=== PATIENT | female | born 1985 | race Caucasian/White ===

== ENCOUNTER 2016-08-01 20:27 | Emergency (ER) | payer OTHER ==
[2016-08-01 21:01] VITALS: RESP 20; TEMP 97.4
[2016-08-01 21:20] LABS: BASOPHILS % (AUTO) 1 % (0-3); EOSINOPHILS % (AUTO) 1 % (0-9); HEMATOCRIT 43 % (35-47); MEAN CORPUSCULAR HGB CONC 36.7 gm/dl (32.0-36.0); MEAN CORPUSCULAR VOLUME 85 fL (81-99); MONOCYTES % (AUTO) 4.5 % (0-12)
[2016-08-01 21:45] LABS: CALCIUM 9.4 mg/dl (8.5-10.1); GLOM FILT RATE 95 mL/min (>60); POTASSIUM 3.2 mMol/L (3.5-5.1); SODIUM 137 mMol/L (136-145); THYROID STIMULATING HORMONE 1.128 uIU/ml (0.358-3.740)
[2016-08-01] MEDS ORDERED: AUGMENTIN(FRIDGE) 400 MG/5 ML PO ONE (21:50)
[2016-08-01] MEDS ORDERED: AUGMENTIN(FRIDGE) 400 MG/5 ML ONE (22:03)
[2016-08-02 00:17] VITALS: BP 121/74; PULSE 80; O2SAT 99
== END 2016-08-01 22:45 | disposition home or self-care (01) ==
LOC: ED 20:27
DX: J18.9 Pneumonia, unspecified organism (principal)
CPT/HCPCS: 36415; 71020; 80048; 84443; 84484; 85025; 85378; 93005; 99283; 99284